=== PATIENT | male | born 1945 | race Caucasian/White ===

== ENCOUNTER 2023-01-26 22:32 | Emergency (ER) | payer OTHER, SELFPAY ==
[2023-01-26 22:35] VITALS: BP 145/88; PULSE 101; RESP 15; TEMP 37.1; O2SAT 98; BMI 29.2
[2023-01-26 22:48] VITALS: BP 152/105; PULSE 95; RESP 16; O2SAT 96
--- NOTE | 2023-01-26 22:52 | EKG12_ITS ---
Test Reason : PALPS Blood Pressure : / mmHG Vent. Rate : 097 BPM Atrial Rate : 000 BPM P-R Int : 000 ms QRS Dur : 090 ms QT Int : 348 ms P-R-T Axes : 000 -22 -03 degrees QTc Int : 441 ms Atrial fibrillation Abnormal ECG Confirmed by REBECCA MOJICA, ROMINA ([id number]), legal editor RIVERA CACERES ([id number]) on 01/27/2023 2:27:45 PM Referred By: Confirmed By:ROMINA FERNANDEZ MD
--- NOTE | 2023-01-26 22:53 | EDS_ITS ---
HPI History of Present Illness Chief Complaint: Palpitations Informant: patient and family Narrative Narrative: Patient is a 77-year-old male with history of proximal atrial fibrillation and hyperlipidemia presenting from home for palpitations. Patient states he has been feeling that he has been in atrial fibrillation since Tuesday, 3 days ago. He states his heart rate is normally in the low 60s however for the past 3 days his heart rate has been in the 90s or above. He states he can feel that he is back in atrial fibrillation. He is concerned because normally he will only be in atrial fibrillation for about a day and then go back to sinus rhythm. He n otes he did take 50 mg of his metoprolol this morning instead of his normal 37.5 mg. He has not missed any doses of his Eliquis. Denies any chest pain, exercise intolerance, shortness of breath, cough or leg swelling. Does follow with Dr. Morris. No other complaints or concerns at this time. [facility] Medical History Hyperlipidemia Hypertension Paroxysmal atrial fibrillation Home Medications coenzyme Q10 100 mg capsule 100 mg PO DAILY 02/04/20 [History Last Taken Unknown] niacin 100 mg tablet 100 mg PO DAILY 02/04/20 [History Last Taken Unknown] saw palmetto 500 mg capsule 500 mg PO BID 02/04/20 [History Last Taken Unknown] metoprolol tartrate 25 mg tablet 37.5 mg (1.5 x 25 mg) PO BID #270 tabs 04/12/22 [Rx Last Taken Unknown] apixaban 5 mg tablet (Eliquis) 5 mg PO BID #180 tabs 08/12/22 [Rx Last Taken Unknown] Allergy/AdvReac Type Severity Reaction Status Date / Time No Known Allergies Allergy Verified 01/26/23 22:39 Family History Mother CVA (cerebral vascular accident) Father Alzheimer's disease Heart disease Brother , age 77 from complications of valvular HD Cancer prostate Heart disease Brother Paroxysmal atrial fibrillation Brother Pacemaker Surgical History History of left inguinal hernia repair Social History Smoking Status: Never smoker alcohol intake: never substance use type: does not use caffeine: No ROS ROS ED Constitutional Constitutional ED: Denies chills or fever(s) Eyes Eyes: Denies change in vision Cardiovascular Cardiovascular: Reports palpitations; Denies chest pain Respiratory/Chest Respiratory/Chest: Denies cough, dyspnea or dyspnea on exertion Gastrointestinal Gastrointestinal: Denies abdominal pain, nausea or vomiting Musculoskeletal Musculoskeletal: Denies arthralgias or myalgias Integumentary Denies rash Neurologic Neurologic: Denies headache(s) or weakness Hematologic/Lymphatic Hematologic/Lymphatic: Reports easy bruising EXAM Physical Exam Const Vital Signs: 01/26/23 22:35 01/26/23 22:44 01/26/23 22:48 Temperature 98.7 F Temperature Source Temporal Pulse Rate 101 H 95 Respiratory Rate 15 16 Respiratory Effort Normal Respiratory Pattern Normal Blood Pressure 145/88 H 152/105 H Blood Pressure Mean 107 120 Pulse Ox 98 96 Oxygen Delivery Method Room Air Room Air 01/26/23 23:05 01/26/23 23:13 01/26/23 23:40 Temperature Temperature Source Pulse Rate 87 77 Respiratory Rate 14 16 Respiratory Effort Respiratory Pattern Blood Pressure 137/93 H 125/78 H Blood Pressure Mean 107 93 Pulse Ox 98 98 Oxygen Delivery Method Room Air Room Air Room Air Positive well nourished and well developed General Appearance ED: well developed and NAD HEENT Reports moist mucous membranes Eyes PERRL and EOMs intact bilaterally Neck supple and no JVD Chest Wall inspection of chest normal and palpation of chest normal Resp normal respiratory effort and clear to auscultation bilaterally Cardio regular rate and no murmurs Rhythm: abnormal rhythm irregularly irregular GI normal to inspection, nondistended, normoactive bowel sounds and non-tender Extremity normal to inspection Extremity Narrative: 2+ bilateral DP pulses General Extremety ED: Negative for edema or tenderness General Extremity: Negative for edema Neuro oriented x3 Sensorium / Orientation: alert Motor Exam: Negative for general weakness Psych mental status grossly normal Skin no rashes or lesions noted and no wounds MDM MDM MDM Narrative Medical decision making narrative: Patient's evaluated for palpitations. Patient appears to be in rate controlled atrial fibrillation. Sounds like he has been in A-fib for couple days which is abnormal for him as he is usually more proximal. We will look for signs of any underlying cardiac stress, [place] abnormalities or anemia that could be triggering this. We will give a dose of IV metoprolol. As he is hemodynamically stable I do not think he requires cardioversion at this time. Work-up largely normal. No acute anemia, signs of dehydration, ANNA, thyroid dysfunction, electrolyte abnormalities or signs of ACS. He remains in atrial fibrillation in the ER but is rate controlled. He states he feels well now and is asymptomatic. Will increase to 50 mg twice daily metoprolol until either he converts back to normal sinus rhythm or he can follow-up with cardiology for further recommendations. Patient is agreeable this plan of care. Given return precautions to the ER including sustaining a rate above 110 bpm, chest pain, shortness of breath, diaphoresis or other concerns. Patient and family verbalized agreement understand this plan. Lab Data Attestation: I reviewed the patient's lab results. Labs: Laboratory Results - last 24 hr 01/26/23 22:57 WBC 9.0 RBC 5.26 Hgb 16.5 Hct 48.9 MCV 93.0 MCH 31.4 MCHC 33.7 RDW Std Deviation 42.7 RDW Coeff of Kimberlee 12.4 Plt Count 232 MPV 10.5 Immature Gran % (Auto) 0.100 Neut % (Auto) 50.4 Lymph % (Auto) 37.4 Sully % (Auto) 10.1 H Eos % (Auto) 1.4 Baso % (Auto) 0.6 Absolute Neuts (auto) 4.6 Absolute Lymphs (auto) 3.38 Nucleated RBC % 0 Sodium 142 Potassium 4.1 Chloride 111 H Carbon Dioxide 25.0 Anion Gap 6 BUN 22 H Creatinine 1.04 Estim Creat Clear Calc 57.38 Est GFR (MDRD) Af Amer 89 Est GFR (MDRD) Non-Af 74 BUN/Creatinine Ratio 21.2 H Glucose 96 Calcium 9.0 Magnesium 2.2 Troponin I High Sens 6 TSH 2.12 Radiography Diagnostic Testing: Clinical Impression(s) from Imaging Studies Chest X-Ray 01/26/23 23:16 IMPRESSION: No demonstrated acute cardiopulmonary process. Electronically Signed: Julia Sanches MD at 23:43 EDT , Rhythm Strip Rhythm Strip: A-fib Rate: 97 Ectopy: None EKG Initial EKG: Attestation: I personally reviewed and interpreted this EKG as follows: Interpretation: Atrial Fibrillation Comments: Atrial fibrillation at a rate of 97 bpm Normal axis Normal intervals Normal ST segments Nonspecific T wave inversion in lead III Differential Diagnosis Chest pain/SOB: pulmonary embolism Reason(s) PE less likely: Positive for not hypoxic and patient taking oral anticoagulants, ACS ACS: Positive for no evidence of ACS based on cardiac biomarkers, EKG without ischemia and history not suggestive of ischemia pain, pneumonia Reason(s) pneumonia less likely: Positive for no infiltrate on CXR, no elevation in WBC count, no noted fever and symptoms not consistent with acute infection and CHF Reason(s) CHF less likely: Positive for no significant peripheral edema, no orthopnea and no evidence of fluid overload on CXR Discharge Plan Triage Chief Complaint: Palpitations ED Provider: Rebecca Walker Dx/Rx/DC Orders Clinical Impression: Heart palpitations, Paroxysmal atrial fibrillation Instructions: ED AFIB Prescriptions: No Action saw palmetto 500 mg capsule 500 mg PO BID Rx Instructions: give with food (meal/snack) niacin 100 mg tablet 100 mg PO DAILY coenzyme Q10 100 mg capsule 100 mg PO DAILY metoprolol tartrate 25 mg tablet 37.5 mg PO BID Qty: 270 4RF Eliquis 5 mg tablet 5 mg PO BID Qty: 180 4RF Primary Care Provider: Evangelist Paul Referrals: Jc Morris MD [Med Staff - Active Staff] - Evangelist Paul MD [Primary Care Provider] - Activity Restrictions/Additional Instructions: Your work-up was largely normal. You are in atrial fibrillation but you do not have an emergency associated with this. For the time being increase your metoprolol to 50 mg (2 pills) twice a day. Continue taking your Eliquis. Call cardiology office tomorrow to let them know that you are in the ER and for further recommendations. Disposition Disposition: Home, Self Care
[2023-01-26 23:03] LABS: Absolute Lymphocyte Count 3.38 X10^3/uL (0.83-4.51); Absolute Neutrophil Count 4.6 X10^3/uL (2.0-7.7); Basophil# 0.05 X10^3/uL; Basophil% 0.6 % (0-1); Eosinophil# 0.13 X10^3/uL; Eosinophils% 1.4 % (0-5); Hematocrit 48.9 % (40-54); Hemoglobin 16.5 g/dL (13.0-16.5); Lymphocyte # 3.38 X10^3/ul (0.83-4.51); Lymphocyte % 37.4 % (19-41); Mean Corp Hgb Conc 33.7 g/dL (32-36); Mean Corpuscular Hgb 31.4 pg (27.0-32.0); Mean Platelet Vol. 10.5 fl (6.2-12.0); Monocyte# 0.91 X10^3/uL; Monocyte% 10.1 % (0-10); NRBC Flagged by Analyzer 0 % (0-5); Neutrophil # 4.55 X10^3/uL (2.7-7.7); Neutrophil % 50.4 % (47-70); Platelet Count 232 K/mm3 (150-450); RBC Distribution Width CV 12.4 % (11.6-14.6); RBC Distribution Width SD 42.7 fl (35.1-43.9); Red Blood Count 5.26 M/mm3 (4.6-6.2)
[2023-01-26 23:05] VITALS: BP 137/93; PULSE 87; RESP 14; O2SAT 98
[2023-01-26] MEDS: Metoprolol Tartrate 5 MG/5 ML Vial IV (23:06)
--- NOTE | 2023-01-26 23:16 | RAD_ITS ---
STUDY: X-RAY CHEST REASON FOR EXAM: Male, 77 years old. Chest pain TECHNIQUE: PA and lateral views of the chest. COMPARISON: None. FINDINGS: The lungs are clear and expanded. There is no demonstrated pleural abnormality. Normal size heart. Normal mediastinum and eda. Normal visualized pulmonary arteries. Normal visualized aortic arch and descending thoracic aorta. There are diffuse degenerative changes of the visualized thoracic spine. Normal visualized ribs, clavicles, and shoulders. There is no demonstrated abnormality of the visualized soft tissue structures of the upper abdomen. RAD/Chest PA and Lateral IMPRESSION: No demonstrated acute cardiopulmonary process. Electronically Signed: Julia Sanches MD at 23:43 EDT ,
[2023-01-26 23:27] LABS: Anion Gap 6 (5-15); BUN 22 mg/dL (7-18); BUN/Creat Ratio 21.2 RATIO (10-20); Chloride 111 mmol/L (98-107); Creatinine, Serum 1.04 mg/dL (0.70-1.30); EST Glomerular Filtration Rate 74 mL/min (>60); Est Glom Filt Rate - Afr Amer 89 mL/min (>60); Estimated Creatinine Clearance 57.38 ml/min; Glucose 96 mg/dL (74-106); Magnesium 2.2 mg/dL (1.6-2.6); Potassium 4.1 mmol/L (3.5-5.1); Sodium Level 142 mmol/L (136-145); Thyroid Stim Hormone (TSH) 2.12 uIU/mL (0.358-3.74); Troponin-I HS 6 pg/mL (3.0-78.0)
[2023-01-26 23:40] VITALS: BP 125/78; PULSE 77; RESP 16; O2SAT 98
[2023-01-27 00:19] VITALS: BP 135/81; PULSE 87; RESP 19; O2SAT 97
== END 2023-01-27 00:24 | disposition home or self-care (01) ==
PROVIDERS: Emergency Provider Emergency Medicine; PCP Family Medicine; Visit Provider Emergency Medicine
DX: R00.2 Palpitations (principal); I48.0 Paroxysmal atrial fibrillation; I10 Essential (primary) hypertension; E78.5 Hyperlipidemia, unspecified; Z79.899 Other long term (current) drug therapy; Z79.01 Long term (current) use of anticoagulants
CPT/HCPCS: 71046; 80048; 83735; 84443; 84484; 85025; 93005; 96374; 99284; A4216

== ENCOUNTER → 2023-06-15 | Outpatient (CLI) | payer SELFPAY, OTHER ==
--- NOTE | 2023-06-15 09:05 | ECHOD_ITS ---
Reason For Study: ATRIAL FIBRILLATION Procedure This was a 2D Doppler, Color Flow transthoracic echocardiogram. Exam performed in department. Left Ventricle Normal LV size. Left ventricular systolic function is normal. The estimated ejection fraction is 60 %. No regional wall motion abnormalities noted. Right Ventricle Normal RV size. Normal systolic function. Atria Normal left atrium. Normal right atrium. Mitral Valve Normal mitral valve. Tricuspid Valve Normal tricuspid valve. Aortic Valve Normal aortic valve. Trisinus/trileaflet aortic valve. Pulmonic Valve Normal pulmonic valve. Great Vessels Normal aortic root. The pulmonary artery is normal size. Normal inferior vena cava. Pericardium/Pleural No pericardial effusion. MMode/2D Measurements & Calculations LVIDd: 4.4 cm IVSd: 1.1 cm Ao root diam: 3.3 cm LVIDs: 2.8 cm LVPWd: 1.1 cm RVDd: 3.4 cm FS: 36.5 % LAV(MOD-bp): 31.4 ml LVAd ap4: 25.7 cm2 SV(MOD-sp4): 44.9 ml LAV(MOD-bp) Indexed: 16.2 ml/m2 LVLd ap4: 7.1 cm LAV(MOD-sp2): 31.5 ml EDV(MOD-sp4): 74.8 ml LAV(MOD-sp4): 29.3 ml EDV(sp4-el): 78.6 ml LVAs ap4: 14.8 cm2 LVLs ap4: 6.1 cm ESV(MOD-sp4): 29.9 ml ESV(sp4-el): 30.2 ml EF(MOD-sp4): 60.0 % EF(sp4-el): 61.5 % SV(sp4-el): 48.3 ml LA A4 area: 13.4 cm2 LA dimension(2D): 3.0 cm RA A4 area: 12.1 cm2 Doppler Measurements & Calculations MV E max marychuy: 80.4 cm/sec Ao V2 max: 109.6 cm/sec LV V1 max: 93.0 cm/sec Ao max P.8 mmHg LV V1 max P.5 mmHg PA V2 max: 58.5 cm/sec ECHO/Echo Complete Interpretation Summary Normal LV size. Left ventricular systolic function is normal. The estimated ejection fraction is 60 %. Structurally normal valves. Ordering Physician: Maeve Zavala/Jc Morris Referring Physician: DINORAH CHADWICK Performed By: Yovana Jay RDCS
== END | disposition home or self-care (01) ==
LOC: CVS 09:04
PROVIDERS: PCP Family Medicine; Referring Provider Physician Assistant Medical; Visit Provider Physician Assistant Medical
DX: I48.0 Paroxysmal atrial fibrillation (principal)
CPT/HCPCS: 93306